=== PATIENT | male | born 1965 | race African-American/Black ===

== ENCOUNTER 2018-07-16 18:16 | Emergency (ER) | payer SELFPAY ==
--- NOTE | 2018-07-16 18:54 | ED Physician Documentation ---
General Adult - HISTORIAN Historian: patient - HPI Stated Complaint: L leg pain Chief Complaint: General Adult Further Comments: yes (53 year old male patient presents with complaint of left buttock pain radiating to left calf. Patient states the pain started yesterday and has become progressively worse. Patient reports being off his blood pressure medication for the past month.) - ROS CONST: no problems EYES/ENT: none CVS/RESP: none GI/: none MS/SKIN/LYMPH: none NEURO/PSYCH: denies: headache - PAST HX Past History: hypertension, other (HLD) Allergies/Adverse Reactions: Allergies Allergy/AdvReac Type Severity Reaction Status Date / Time No Known Allergies Allergy Verified 07/16/18 18:27 Home Medications: Ambulatory Orders Medication Instructions Recorded Ketorolac Tromethamine [Toradol] 10 mg PO TID #15 tablet 07/16/18 Lisinopril/Hydrochlorothiazide 1 each PO DAILY #30 tablet 07/16/18 [Zestoretic] Prednisone 40 mg PO DAILY #16 tablet 07/16/18 - SOCIAL HX Smoking History: cigarettes - FAMILY HX Family History: No - VITAL SIGNS Vital Signs: Vital Signs Temp Pulse Resp BP Pulse Ox 97.6 F 108 H 16 142/108 98 07/16/18 18:24 07/16/18 18:24 07/16/18 18:24 07/16/18 18:24 07/16/18 18:24 - REVIEWED ASSESSMENTS Nursing Assessment Reviewed: Yes Vitals Reviewed: Yes Progress - Progress Progress: Patient has been off his daily medications since being paroled over a month ago. 1950 Repeated clonidine - BP 162/111 ED Results Lab/Radiology - Orders Orders: ED Orders Category Date Time Status BMP [BMP] Stat Lab 07/16/18 18:52 Ordered CloNIDine HCL [Catapress] Med 07/16/18 18:52 Once 0.1 mg PO NOW ONE Ketorolac Tromethamine [Toradol] Med 07/16/18 18:52 Once 60 mg IM NOW ONE General Adult Physical Exam - PHYSICAL EXAM GENERAL APPEARANCE: mild distress EENT: eye inspection normal, BERNARD RESPIRATORY: no resp distress, chest non-tender, breath sounds normal CVS: reg rate & rhythm, heart sounds normal, equal pulses, no murmur, no gallop, PMI nml, no JVD, no friction rub, 24 SKIN: normal color, warm/dry, NR, INT, PAL, DR EXTREMITIES: non-tender, normal range of motion, no evidence of injury, no edema, J, [employer] NEURO: oriented X3, CN's nml as tested, motor nml, sensation nml, mood/affect nml Discharge Clincal Impression: Essential hypertension, Sciatica of left side Prescriptions: Ketorolac Tromethamine [Toradol] 10 mg PO TID #15 tablet Lisinopril/Hydrochlorothiazide [Zestoretic] 1 each PO DAILY #30 tablet Prednisone 40 mg PO DAILY #16 tablet Referrals: Primary Doctor,No [Primary Care Provider] - 2 Days Additional Instructions: 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 Start your prednisone tomorrow. You may use Tylenol every 4hour as needed for pain. Limit your dose to less than 4 G per day. Alternate with Ibuprofen 600-800mg three times a day with food as needed. Do not take for more than 5 days in a row. Establish primary care and make an appointment as soon as possible. Condition: Stable Disposition: 01 HOME, SELF-CARE Decision to Admit: NO Decision Time: 19:41
[2018-07-16] MEDS: KETOROLAC TROMETHAMINE 60 MG/2 ML VIAL IM ONE (19:01)
[2018-07-16] MEDS: CloNIDine HCL 0.1 MG TABLET PO ONE ×2 (19:01→19:52)
[2018-07-16 19:22] LABS: eGFR (Non-African) > 60
[2018-07-16 20:17] VITALS: BP 150/99
== END 2018-07-16 20:16 | disposition home or self-care (01) ==
LOC: EDBD 18:16 → ED 18:16
DX: I10 Essential (primary) hypertension (principal); M54.32 Sciatica, left side
CPT/HCPCS: 80048; J1885; 96372; 99284

== ENCOUNTER 2019-02-03 21:05 | Emergency (ER) | payer OTHER ==
--- NOTE | 2019-02-03 21:24 | ED Physician Documentation ---
General Adult - HISTORIAN Historian: patient - HPI Stated Complaint: laceration on left hand (palm) cut it Saturday Chief Complaint: Laceration/Recheck/Suture Onset: days ago (2) Timing: still present, better Severity: mild Further Comments: yes (He states he cut his hand Saturday and at work today his supervior discovered he had a cut and wanted him checked out before returning to work. He states he has been putting antibiotic ointment on it with a dressing. Denies any pain. No swelling or drainage) Last known Well Code/Unknown Code: Unknown - ROS CONST: no problems MS/SKIN/LYMPH: other (laceration ) - PAST HX Past History: hypertension Immunizations: UTD Allergies/Adverse Reactions: Allergies Allergy/AdvReac Type Severity Reaction Status Date / Time No Known Allergies Allergy Verified 02/03/19 21:24 Home Medications: Ambulatory Orders Medication Instructions Recorded Lisinopril/Hydrochlorothiazide 1 each PO DAILY #30 tablet 07/16/18 [Zestoretic] - SOCIAL HX Smoking History: non-smoker Alcohol Use: none Drug Use: none - FAMILY HX Family History: No - VITAL SIGNS Vital Signs: Vital Signs Temp Pulse Resp BP Pulse Ox 98.2 F 87 20 138/91 99 02/03/19 21:20 02/03/19 21:20 02/03/19 21:20 02/03/19 21:20 02/03/19 21:20 - REVIEWED ASSESSMENTS Nursing Assessment Reviewed: Yes Vitals Reviewed: Yes General Adult Physical Exam - PHYSICAL EXAM GENERAL APPEARANCE: no distress EENT: eye inspection normal NECK: normal inspection RESPIRATORY: no resp distress, chest non-tender, breath sounds normal CVS: reg rate & rhythm, heart sounds normal ABDOMEN: soft, normal bowel sounds BACK: normal inspection SKIN: warm/dry, other (right palm 2 cm laceration nearly approximated no drainge no redness. FROM . Sensation normal. Pulses normal ) EXTREMITIES: non-tender, normal range of motion, no evidence of injury, no edema NEURO: oriented X3 Discharge Clincal Impression: Laceration of left palm without complication Qualifiers: Encounter type: initial encounter Qualified Code(s): S61.412A - Laceration without foreign body of left hand, initial encounter Referrals: Primary Doctor,No [Primary Care Provider] - 2 Days Comments: 1. Keep area clean and dry 2. Monitor for s/sx of infection 3. Follow up with PCP in 2-4 days if any changes 4. Return to ER for any increasing concerns Condition: Stable Disposition: 01 HOME, SELF-CARE Decision to Admit: NO Date of Decison to Admit: 02/03/19 Decision Time: 21:33
[2019-02-03 21:25] VITALS: BP 138/91
== END 2019-02-03 21:38 | disposition home or self-care (01) ==
LOC: ED 21:05
DX: S61.412A Laceration without foreign body of left hand, initial encounter (principal); W45.8XXA Other foreign body or object entering through skin, initial encounter; Y93.9 Activity, unspecified; Y92.89 Other specified places as the place of occurrence of the external cause; Y99.0 Civilian activity done for income or pay
CPT/HCPCS: 99282; J7030

== ENCOUNTER 2019-08-03 14:25 | Emergency (ER) | payer OTHER ==
--- NOTE | 2019-08-03 14:31 | ED Physician Documentation ---
General Adult - HISTORIAN Historian: patient - HPI Stated Complaint: right sided neck pain/cramp Chief Complaint: Neck Pain Onset: days ago (2) Timing: still present Severity: moderate Further Comments: yes (He states he was fishing sat and he does cast with the right arm. Woke Saturday with pain and cramping feeling in the right shoulder/neck and the pain is increasing. He has not had any OTC meds today. HE has increased pain with right lateral moving of neck. No injury . No loss of sensation) - ROS CONST: no problems NEURO/PSYCH: denies: headache - PAST HX Past History: hypertension Allergies/Adverse Reactions: Allergies Allergy/AdvReac Type Severity Reaction Status Date / Time No Known Allergies Allergy Verified 08/03/19 14:38 Home Medications: Ambulatory Orders Medication Instructions Recorded Lisinopril/Hydrochlorothiazide 1 each PO DAILY #30 tablet 07/16/18 [Zestoretic] - SOCIAL HX Smoking History: cigarettes Alcohol Use: heavy Drug Use: marijuana - FAMILY HX Family History: No - VITAL SIGNS Vital Signs: Vital Signs Temp Pulse Resp BP Pulse Ox 138/91 02/03/19 21:34 - REVIEWED ASSESSMENTS Nursing Assessment Reviewed: Yes Vitals Reviewed: Yes General Adult Physical Exam - PHYSICAL EXAM GENERAL APPEARANCE: no distress EENT: eye inspection normal, no signs of dehydration NECK: normal inspection, other (pain to palpation and tight muscle - increased pain with right lateral movement. ) RESPIRATORY: no resp distress, chest non-tender CVS: reg rate & rhythm, heart sounds normal ABDOMEN: soft BACK: normal inspection SKIN: warm/dry, normal color EXTREMITIES: non-tender, normal range of motion, no evidence of injury, no edema NEURO: oriented X3 Discharge Clincal Impression: Cervicalgia Referrals: Primary Doctor,No [Primary Care Provider] - 2 Days Comments: 1. OTC meds as directed as needed for symptom management 2. Flexeril 10 mg take 1 by mouth every 8 hours as needed for pain 3. Ibuprofen 800 mg take 1 by mouth every 12 hours as needed for pain 4. Ice/heat for comfort 5. Return to PCP in 2-4 days if no improvement 6. Return to ER for any increasing concerns Condition: Stable Disposition: 01 HOME, SELF-CARE Decision to Admit: NO Date of Decison to Admit: 08/03/19 Decision Time: 14:48
[2019-08-03] MEDS ORDERED: KETOROLAC TROMETHAMINE 60 MG/2 ML VIAL IM ONE (14:40)
[2019-08-03] MEDS ORDERED: methylPREDNISolone ACETATE 80 MG/ML VIAL IM ONE (14:41)
[2019-08-03] MEDS ORDERED: ORPHENADRINE CITRATE 60 MG/2 ML ML IM ONE (14:41)
[2019-08-03 14:55] VITALS: BP 136/91
== END 2019-08-03 14:56 | disposition home or self-care (01) ==
LOC: ED 14:25
DX: M54.2 Cervicalgia (principal)
CPT/HCPCS: 96372; 99283; 99284; J1040; J1885; J2360

== ENCOUNTER 2019-09-02 11:57 | Emergency (ER) | payer OTHER ==
--- NOTE | 2019-09-02 12:17 | ED Physician Documentation ---
Upper Extremity Problem - HISTORIAN Historian: patient - HPI Stated Complaint: left hand/wrist pain and swelling Chief Complaint: Upper Extremity Problem Additional Information: Patient presents to ED with a 1 month history of left hand/wrist swelling. Patient states it is intermittent but has progressed over the past 2 days. This morning he woke up with more pain and swelling. He states this fingers are numb/tingling. He denies any injury or trauma. 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 Location: L wrist Onset: days ago (30) Timing: still present, worse Duration: intermittent episodes Recent Injury: No Where: work Associated Symptoms: denies: fever Exacerbated By: other (flexion of wrist) Relieved By: rest Quality: pain, swelling, tingling - ROS CONST: no problems EYES/ENT: none CVS/RESP: none GI/: none MS/SKIN/LYMPH: denies: calf pain NEURO/PSYCH: denies: headache - PAST HX Past History: none Other History: hypertension Surgeries/Procedures: none Allergies/Adverse Reactions: Allergies Allergy/AdvReac Type Severity Reaction Status Date / Time No Known Allergies Allergy Verified 09/02/19 12:21 Home Medications: Ambulatory Orders Medication Instructions Recorded Lisinopril/Hydrochlorothiazide 1 each PO DAILY #30 tablet 07/16/18 [Zestoretic] Methylprednisolone [Medrol] 4 mg PO DIRECTED #1 tab.ds.pk 09/02/19 - SOCIAL HX Smoking History: cigarettes, greater than 1 pack/day Alcohol Use: none Drug Use: none - FAMILY HX Family History: none - VITAL SIGNS Vital Signs: Vital Signs Temp Pulse Resp BP Pulse Ox 136/91 08/03/19 14:56 - REVIEWED ASSESSMENTS Nursing Assessment Reviewed: Yes Vitals Reviewed: Yes ED Results Lab/Radiology - Orders Orders: ED Orders Category Date Time Status Cock-Up Splint 1T Care 09/02/19 12:14 Ordered Upper Extremity Problem - EXAM General Appearance: no acute distress, alert Skin: warm/dry, normal color. No: cyanosis Shoulder Exam: normal inspection, non-tender, no evidence of injury, normal ROM Elbow/Forearm Exam: normal inspection, non-tender, no evidence of injury, normal ROM Wrist Exam: normal inspection, no evidence of injury, normal ROM, swelling (left) Hand Exam: soft tissue tenderness (palm of hand), swelling Neuro/Tendon: normal sensation, normal motor functions, normal tendon functions, other (Positive Phalen's test) EENT: BERNARD CVS: reg rate & rhythm Vascular: no vascular compromise Peripheral: sensation nml, motor nml, pos Phalen's sign Central: oriented X3 Respiratory: no resp. distress, breath sounds nml Abdomen: non-tender, no distention. No: tenderness Discharge Clincal Impression: Left carpal tunnel syndrome Referrals: Primary Doctor,No [Primary Care Provider] - 2 Days Additional Instructions: 1. Start Medrol Dose pack tomorrow 2. Add Tylenol 650mg every 4 hours as needed for pain. Do NOT take Ibuprofen while taking Medrol dose pack 3. Keep brace on while awake, remove with sleep 4. Follow up with PCP within 1 week. Discuss Orthopedic referral for Carpal tunnel release 5. Occupational therapy consult has been sent. They will be contacting you with information about your appointment 6. Return to ER for new or worsening symptoms. Condition: Stable Disposition: 01 HOME, SELF-CARE Decision to Admit: NO Date of Decison to Admit: 09/02/19 Decision Time: 12:23
[2019-09-02] MEDS: methylPREDNISolone SOD SUCC 125 MG/2 ML VIAL IM ONE (12:23)
[2019-09-02 12:33] VITALS: BP 133/97
== END 2019-09-02 12:35 | disposition home or self-care (01) ==
LOC: ED 11:57
DX: G56.02 Carpal tunnel syndrome, left upper limb (principal)
CPT/HCPCS: 96372; 99283; J2930